=== PATIENT | female | born 1940 ===

== ENCOUNTER → 2017-03-30 | Outpatient (CLI) | payer MEDICARE ==
[~2017-03-30] MED LIST: CLARITIN10 MG PO; INDERAL10 MG PO; KLOR-CON 1010 MEQ PO; LEVOTHROID (SY88 MCG PO; NOVOLOG100 UNIT/M SUB-Q; OCUVITE SOFTGE1 EACH PO; ONE DAILY FOR1 EAC3 PO; OSCAL + D500 MG PO; PROTONIX20 MG PO; TYLENOL325 MG PO
== END ==
LOC: LKCL 09:36
DX: E11.9 Type 2 diabetes mellitus without complications (principal); B18.2 Chronic viral hepatitis C; K74.60 Unspecified cirrhosis of liver